=== PATIENT | male | born 1995 | race Caucasian/White ===

== ENCOUNTER 2025-05-26 19:47 | Emergency (ER) | payer OTHER, SELFPAY ==
[2025-05-26 19:49] VITALS: BP 139/89
--- NOTE | 2025-05-26 20:02 | ED.GENMED ---
ED Provider Triage
<Ailyn Oneal PA-C - Last Filed: 05/29/25 06:26>
-
Patient seen by provider in Triage?: Seen in Triage
Attestation: A medical screening examination has been initiated by a qualified medical provider. Based on the assessment performed at this time, it has been determined that an emergent medical condition may exist and the patient has been informed
that further medical evaluation and possible additional diagnostic testing may be needed.
HPI: 29yoM here with epigastric pain x 2 weeks. Also c/o projective vomiting and intermittent diarrhea. On semaglutide for weight loss.
GENERAL: Alert , in no apparent distress
EYE: No visual abnormalities.
NECK: Trachea midline
ENT: No visible abnormalities.
LUNGS: No acute respiratory distress
NEUROLOGICAL: Alert and oriented
SKIN: Skin intact. No visible changes.
MUSCULOSKELETAL: Moving extremities normally
PSYCH: Normal and appropriate interaction.
This is a medical evaluation conducted in person to initiate diagnostic evaluation and provide initial therapeutics. Please see further documentation by the treating clinician.
Abdominal labs and CT ordered.
History of Present Illness
<Ailyn Oneal PA-C - Last Filed: 05/29/25 06:26>
General
Chief Complaint: Abdominal Symptoms
Time Seen by Provider: 05/27/25 01:04
<Loli Dong MD - Last Filed: 05/27/25 03:49>
General
Source: patient
History of Present Illness
History of Present Illness:
29-year-old male who says that 2 weeks ago he developed generalized abdominal discomfort associated with nausea, vomiting, and diarrhea. The nausea vomiting diarrhea went away but then he noted that the abdominal discomfort 'lingered' described as
'dull', without specific localizing factors. Yesterday, the pain got worse this was with recurrent nausea vomiting diarrhea. He no longer has nausea or vomiting today but did have a loose bowel movement x 1 without black stool or blood. He
continues with generalized abdominal comfort that is mild. He denies chest pain, dyspnea, back pain, urinary symptoms, fever, chills, or other complaints. Patient has been on a GLP-1 for about a year. No recent medication changes.
Past History
<Loli Dong MD - Last Filed: 05/27/25 03:49>
Past History
ED Past Medical History: Psychiatric and Other (Reflux)
ED Past Surgical History: None
Social History
Tobacco: Non-smoker
Alcohol: Occasional
Drug: None
Personal: Single
Living: with family
Phy Exam
<Loli Dong MD - Last Filed: 05/27/25 03:49>
Physical Exam
Physical Exam:
GENERAL: Alert , in no apparent distress
EYE: pupils equal and reactive
NECK: Supple, no significant adenopathy.
ENT: o/p clr, mmm.
CARDIAC: Regular rate and rhythm .
LUNGS: Clear breath sounds bilaterally, no acute respiratory distress, no wheezes/rales/rhonchi
ABDOMEN: Soft, without focal tenderness, no r/g, no cvat
NEUROLOGICAL: Alert and oriented, no focal neuro deficits
SKIN: Warm and dry, skin intact.
MUSCULOSKELETAL: No edema, well perfused.
PSYCH: Normal and appropriate interaction.
Course
<Ailyn Oneal PA-C - Last Filed: 05/29/25 06:26>
Orders/Labs/Results
Orders:
Orders
05/26/25 20:20
Basic Metabolic Panel Urgent
Lipase Urgent
05/26/25 20:53
Complete Blood Count/With Diff Urgent
05/27/25 01:18
CT Abd/pel W Iv And Oral Contr Urgent
Comment:
Reason For Exam: hx glp-1 use, abd pain/n/v/d
Iohexol [Omnipaque] See Protocol PO NOW STA
Abnormal Lab Results
05/26/25 05/27/25
20:20 00:41
WBC 11.7 H 10^3/uL
(4.8-10.8)
Absolute Neuts (auto) 10.6 H 10^3/uL
(1.4-6.5)
Absolute Lymphs (auto) 1.0 L 10^3/uL
(1.2-3.4)
Neutrophils % 89.9 H %
(42.2-75.2)
Lymphocytes % 8.2 L %
(20.5-51.1)
Monocytes % 1.5 L %
(1.7-9.3)
Glucose 119 H mg/dl
(70-99)
05/27/25 00:41
05/26/25 20:20
Vital Signs
Initial and Last Documented VS:
Initial Vital Signs
Temp Pulse Resp BP Pulse Ox
99.2 F 79 16 139/89 99
05/26/25 19:49 05/26/25 19:49 05/26/25 19:49 05/26/25 19:49 05/26/25 19:49
Last Documented Vital Signs
Temp Pulse Resp BP Pulse Ox
99.2 F 78 18 129/88 99
05/26/25 19:49 05/27/25 02:04 05/27/25 02:04 05/27/25 04:00 05/27/25 04:00
<Loli Dong MD - Last Filed: 05/27/25 03:49>
Orders/Labs/Results
Orders:
Orders
05/26/25 20:20
Basic Metabolic Panel Urgent
Lipase Urgent
05/26/25 20:53
Complete Blood Count/With Diff Urgent
05/27/25 01:18
CT Abd/pel W Iv And Oral Contr Urgent
Comment:
Reason For Exam: hx glp-1 use, abd pain/n/v/d
Iohexol [Omnipaque] See Protocol PO NOW STA
Abnormal Lab Results
05/26/25 05/27/25
20:20 00:41
WBC 11.7 H 10^3/uL
(4.8-10.8)
Absolute Neuts (auto) 10.6 H 10^3/uL
(1.4-6.5)
Absolute Lymphs (auto) 1.0 L 10^3/uL
(1.2-3.4)
Neutrophils % 89.9 H %
(42.2-75.2)
Lymphocytes % 8.2 L %
(20.5-51.1)
Monocytes % 1.5 L %
(1.7-9.3)
Glucose 119 H mg/dl
(70-99)
05/27/25 00:41
05/26/25 20:20
Vital Signs
Initial and Last Documented VS:
Initial Vital Signs
Temp Pulse Resp BP Pulse Ox
99.2 F 79 16 139/89 99
05/26/25 19:49 05/26/25 19:49 05/26/25 19:49 05/26/25 19:49 05/26/25 19:49
Last Documented Vital Signs
Temp Pulse Resp BP Pulse Ox
99.2 F 78 18 129/88 99
05/26/25 19:49 05/27/25 02:04 05/27/25 02:04 05/27/25 04:00 05/27/25 04:00
<Ailyn Oneal PA-C - Last Filed: 05/29/25 06:26>
*Pulse Oximetry
SaO2: 99
Oxygen Mode of Delivery: Room air
<Loli Dong MD - Last Filed: 05/27/25 03:49>
Update Note
Update Note:
Patient presents to the Emergency Department with __abdominal pain, nausea, vomiting, diarrhea
Number and Complexity of Problems Addressed at the Encounter
� Chronic conditions affecting care:
� Acute Exacerbation and/or Progression of Chronic Illness:
� Differential Diagnosis includes: But not limited to bowel obstruction, pancreatitis, cholecystitis, cholelithiasis, colitis, etc. etc.
Amount and/or Complexity of Data to be Reviewed and Analyzed
� I performed an independent evaluation of and my interpretation is:
EKG:
CT: Read by vision 'no acute findings. No bowel inflammation or obstruction. Normal appendix. Unremarkable CT appearance of the gallbladder and pancreas. No obstructive uropathy. No suspicious free fluid or free air. '
Xrays:
Laboratory Studies: Minimal leukocytosis otherwise generally unremarkable
Other:
� Review of other/old records reveals:
� Clinical information was obtained by an independent historian: Mom who is bedside
� Prescriptions/Medications Considered but not given:
� Further testing considered but not performed:
Risk of Complications and/or Morbidity or Mortality of Patient Management
� Social determinants of health affecting care:
� Discussion with other providers (PCP, Hospitalists, Consultants, etc):
� Escalation of care including admission/observation vs risk of discharge considered: Overall patient quite comfortable here, no rebound or guarding, vital stable, labs and CT unremarkable. Patient stable for discharge with
close follow-up.
ED Attending Note
<Ailyn Oneal PA-C - Last Filed: 05/29/25 06:26>
-
Portions of this chart may have been created with voice recognition software.� Occasional wrong word or��sound alike� substitutions may have occurred due to the inherent limitations of voice recognition software.
Discharge Plan
Departure
Patient Disposition: Home (Routine Discharge)
Date of Disposition: 05/27/25
Time of Disposition: 03:48
Patient with high blood pressure during this ER visit?: Yes
Condition: Good
Discharge Problem:
Abdominal pain
Instructions: Diarrhea in teens and adults, Abdominal Pain, BLOOD PRESSURE
Referrals:
Miky Whitlock DO [Family Provider, Family Practice] - Follow up in 2-3 days
Stand Alone Forms: Return to Work
Activity Restrictions/Additional Instructions:
IF YOU DEVELOP RECURRENT, WORSENING OR NEW PAIN, FEVER, VOMITING, BLEEDING, DIARRHEA, OR OTHER WORRISOME SIGNS, PLEASE RETURN TO THE ER IMMEDIATELY!
Interventions
Interventions:
*Risk Screen - Suicide Last Done: 05/27/25 00:38
*General Assessment Last Done: 05/27/25 00:38
*Neglect/Abuse Screening Last Done: 05/27/25 00:38
*ED- Fall Risk Assessment Last Done: 05/27/25 00:38
*ED COVID-19 Vaccine History Last Done: 05/27/25 00:38
*Nursing Disposition Last Done: 05/27/25 04:40
JU-Tvmphh-Qsdvkoherr Assessment Last Done: 05/27/25 00:38
Discharge Date and Time
Discharge Date/Time: 05/27/25 04:40
Print Language: JAPANESE
[2025-05-26 21:06] LABS: Blood Urea Nitrogen 9 mg/dl (9-20); Calcium 9.7 mg/dl (8.4-10.2); Carbon Dioxide 22 mmol/L (22-30); Chloride 104 mmol/L (98-107); Glucose 119 mg/dl (70-99); Lipase 141 U/L (23-300); Sodium 137 mmol/L (135-145); eGFR > 60.00
[2025-05-27] VITALS (9 sets, daily range): BP systolic 124–143; BP diastolic 78–95; BMI 29.2
[2025-05-27 01:13] LABS: Hematocrit 47.7 % (39.0-52.0); Hemoglobin 15.8 g/dL (13.0-18.0); Mean Corp Hgb Conc. 33.1 g/dL (33.0-37.0); Mean Corpuscular Volume 84.1 fL (80.0-94.0); Nucleated Red Blood Cells % 0 % (-); Platelet Count 336 10^3/uL (130-400); Red Cell Dist. Width 13.0 % (11.5-14.5)
[2025-05-27] MEDS: OMNIPAQUE 50 ML PO (01:25)
== END 2025-05-27 04:40 | disposition home or self-care (01) ==
LOC: EMR 19:47
PROVIDERS: Physician Assistant; EMERGENCY PHYSICIAN Emergency Medicine; FAMILY PHYSICIAN Family Medicine
DX: R10.13 Epigastric pain (principal); R11.2 Nausea with vomiting, unspecified; Z79.899 Other long term (current) drug therapy
CPT/HCPCS: 99284; 74177; 80048; 83690; 85025; Q9967